=== PATIENT | female | born 2000 | race Caucasian/White ===

== ENCOUNTER 2020-10-15 20:17 | Emergency (ER) | payer MEDICAID, OTHER ==
[~2020-10-15] VITALS: Ht 160 cm; Wt 107.0 kg
[~2020-10-15 20:17] MED LIST: FLUO10CA13 PO; ZIPR20CA2 PO
--- NOTE | 2020-10-15 20:50 | NUR ---
erp at bedside
[2020-10-15] MEDS ORDERED: KETOROLAC 30 MG/1 ML ONE (21:13)
[2020-10-15] MEDS ORDERED: ONDANSETRON ODT 4 MG ONE (21:13)
--- NOTE | 2020-10-15 21:18 | NUR ---
PT STATES SHE WAS SEEN AT [facility] YESERDAY FOR SAME ISSUES. 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 ERP AT BEDSIDE, PT MEDICATED PER EMAR
--- NOTE | 2020-10-15 21:25 | NUR ---
ultrasound at bedside
[2020-10-15] MEDS ORDERED: ONDANSETRON ODT 4 MG PO ONE (21:30)
[2020-10-15] MEDS ORDERED: KETOROLAC 30 MG/1 ML IM ONE (21:30)
[2020-10-15 21:44] LABS: BASOPHILS % (AUTO) 1 % (0-1); EOSINOPHILS % (AUTO) 2 % (1-7); LYMPHOCYTES % (AUTO) 14 % (22-44); MD NO; MEAN CORPUSCULAR HEMOGLOBIN 30.5 pg (27.0-34.8); MEAN CORPUSCULAR HGB CONC 34.1 g/dL (32.4-35.8); MEAN PLATELET VOLUME 9.8 fL (7.4-10.4); MONOCYTES % (AUTO) 7 % (2-9); NEUTROPHILS % (AUTO) 75 % (42-75); PLATELET COUNT 225 x10^3/uL (130-400); RED BLOOD COUNT 4.44 x10^6/uL (3.82-5.3); RED CELL DISTRIBUTION WIDTH 13.4 % (9.6-15.2)
[2020-10-15 21:53] LABS: ANION GAP 6 mmol/L (5-15); CALCIUM 8.5 mg/dL (8.5-10.1); CHLORIDE 110 mmol/L (98-107); CREATININE 0.67 mg/dL (0.55-1.02)
[2020-10-15 22:06] VITALS: BP 122/68
--- NOTE | 2020-10-15 22:06 | NUR ---
WITH REASSESSMENT PAIN IMPROVED/DENIES COMPLAINTS VSS ON NIBP/POX UPDATED ON ESTIMATED POC
== END 2020-10-15 23:01 | disposition home or self-care (01) ==
LOC: ED 22:48
DX: E28.2 Polycystic ovarian syndrome (principal); R11.2 Nausea with vomiting, unspecified; N83.512 Torsion of left ovary and ovarian pedicle; F17.290 Nicotine dependence, other tobacco product, uncomplicated; F12.10 Cannabis abuse, uncomplicated
CPT/HCPCS: 36415; 76830; 80048; 85025; 96372; 99284; 99406; J1885; Q0162